=== PATIENT | female | born 1955 | race African-American/Black ===

== ENCOUNTER → 2020-10-01 | Outpatient (CLI) | payer OTHER ==
[2014-10-08 11:00] VITALS: BP 118/81
[~2020-10-01] MED LIST: ASPI-630 PO; GLIP10TA13 PO; MULT-658 PO; OLME1TAB21 PO; OMEG1CAP38 PO
--- NOTE | 2020-10-01 15:46 | RAD ---
EXAM: Bilateral digital screening mammogram with tomosynthesis. HISTORY: 65-year-old female presents for screening mammography. TECHNIQUE: Full-field digital craniocaudal and mediolateral oblique 2D and 3D tomosynthesis images of both breasts are obtained for evaluation. Computer aided detection was applied. COMPARISON: 09/27/2016 BREAST PARENCHYMAL DENSITY: Level B - Scattered fibroglandular densities. FINDINGS: There is a cluster of microcalcifications with indeterminate morphology within the posterior 2:00 position of the left breast. There are few additional scattered benign complications. There is a stable small circumscribed nodular density within the anterior lateral aspect of the right breast compared to studies dating to 09/27/2016. This favors benignity. There are few additional areas of nodularity and asymmetry which are also stable in appearance. IMPRESSION: BI-RADS Category 0: Incomplete. Additional imaging needed. RECOMMENDATION: Spot magnification views of bilateral opacifications within the posterior 2:00 position of the left breast is recommended to assess calcification morphology. If your mammogram demonstrates that you have dense breast tissue, which could hide abnormalities, and if you have other risk factors for breast cancer that have been identified, you might benefit from supplemental screening tests that may be suggested by your ordering physician. Dense breast tissue, in and of itself, is a relatively common condition. This information is not provided to cause undue concern, but rather to raise your awareness and to promote discussion with your physician regarding the presence of other risk factors, in addition to dense breast tissue. A report of your mammography results will be sent to you and your physician. You should contact your physician if you have any questions or concerns regarding this report. Mammography is a sensitive method for finding small breast cancers, but it does not detect them all and is not a substitute for careful clinical examination. A negative mammogram does not negate a clinically suspicious finding and should not result in delay in biopsying a clinically suspicious abnormality. PQRS compliance statement - Patient information was entered into a reminder system with a target due date for the next mammogram. "Our facility is accredited by the [employer] Mammography [employer]." Electronically signed by: Tiara Dahl MD (10/01/2020 3:43 PM) [id number]
== END ==
LOC: MAMMO 12:09
PROVIDERS: ATTEND Pediatrics
DX: Z12.31 Encounter for screening mammogram for malignant neoplasm of breast (principal); N64.89 Other specified disorders of breast
CPT/HCPCS: 77063; 77067

== ENCOUNTER → 2020-12-09 | Outpatient (CLI) | payer OTHER ==
[2014-10-08 11:00] VITALS: BP 118/81
--- NOTE | 2020-12-10 09:49 | RAD ---
DATE: 12/09/2020 1:30 PM EXAM: DIGITAL DIAGNOSTIC LT HISTORY: Screening recall for left breast calcifications in the posterior upper outer quadrant. COMPARISON: 10/01/2020 mammogram TECHNIQUE: Magnification CC and MLO views of the left breast and a full-field left ML view were obtained. This study was interpreted with the benefit of Computerized Aided Detection (CAD). FINDINGS: Breast Density: SCATTERED The breast parenchyma shows scattered fibroglandular densities. Breast parenchyma level B Additional mammographic views of the cluster of calcifications in the posterior upper outer left breast confirm a loose cluster of coarse, dystrophic type calcifications with no associated mass or asymmetry. No suspicious masses, microcalcifications or architectural distortion is present to suggest malignancy.. IMPRESSION: No mammographic evidence of malignancy. BI-RADS CATEGORY: 2 BENIGN FINDING(S) RECOMMENDED FOLLOW-UP: 12M 12 MONTH FOLLOW-UP Annual screening mammography is recommended, unless clinically indicated sooner based on symptoms or change in physical exam. PQRS compliance statement: Patient information was entered into a reminder system with a target due date for the next mammogram. Mammography is a sensitive method for finding small breast cancers, but it does not detect them all and is not a substitute for careful clinical examination. A negative mammogram does not negate a clinically suspicious finding and should not result in delay in biopsying a clinically suspicious abnormality. "Our facility is accredited by the [employer] Mammography [employer]."
== END ==
LOC: MAMMO 13:25
PROVIDERS: ATTEND Pediatrics
DX: R92.8 Other abnormal and inconclusive findings on diagnostic imaging of breast (principal)
CPT/HCPCS: 77065

== ENCOUNTER → 2021-08-26 | Outpatient (CLI) | payer OTHER ==
[2014-10-08 11:00] VITALS: BP 118/81
--- NOTE | 2021-08-26 09:47 | RAD ---
EXAM: XR LUMBAR SPINE 2-3V 08/26/2021 9:08 AM CLINICAL INDICATION: Low back pain COMPARISON: None TECHNIQUE: 2 views of the lumbar spine FINDINGS: There 5 nonrib-bearing lumbar vertebral bodies. No acute fracture. Minimal anterolisthesis of L4 on L5. Mild disc space narrowing at L5-S1. There is multilevel facet arthrosis, likely severe L 3-L4 through L5-S1. IMPRESSION: 1. Multilevel facet arthrosis, likely severe at L3-4 through L5-S1. 2. Mild degenerative disc disease at L5-S1. Electronically signed by: Melva Douglas MD (08/26/2021 9:44 AM) [id number]
== END ==
LOC: RAD 08:50
PROVIDERS: ATTEND Family Medicine
DX: M51.37 Other intervertebral disc degeneration, lumbosacral region (principal)
CPT/HCPCS: 72100